=== PATIENT | male | born 1985 | race Two or more races ===

== ENCOUNTER 2018-06-29 20:30 | Emergency (ER) | payer SELFPAY ==
[~2018-06-29] VITALS: Ht 185.4 cm; Wt 83.9 kg
[2018-06-29] MEDS ORDERED: diphenhydrAMINE HCL 50 MG/ML VIAL ONE (20:58)
[2018-06-29] MEDS ORDERED: HALOPERIDOL LACTATE INJ 5 MG/ML VIAL ONE (20:58)
[2018-06-29] MEDS ORDERED: LORAZEPAM INJ 2 MG/ML VIAL ONE ×2 (20:59→21:18)
[2018-06-29] MEDS ORDERED: diphenhydrAMINE HCL 50 MG/ML VIAL IM ONE (21:00)
[2018-06-29] MEDS ORDERED: HALOPERIDOL LACTATE INJ 5 MG/ML VIAL IM ONE (21:00)
[2018-06-29] MEDS ORDERED: LORAZEPAM INJ 2 MG/ML VIAL IM ONE ×2 (21:00→22:00)
--- NOTE | 2018-06-29 21:00 | NUR ---
[employer] FROM STREET FOR BIZARRE/AGGRESSIVE BEHAIVOR. PER PT HAS BEEN ON [employer]ETH FOR LAST 2 WEEKS, HEARING VOICES, THINKS SOMEONE IS AFTER HIM. PT ANXIOUS & PARANOID, NO AGGRESSIVE BEHAVIOR @ THIS TIME. PT SEEN & EVAL'D BY DR. MONDRAGON & WILL CONT TO MONITOR.
--- NOTE | 2018-06-29 22:00 | NUR ---
PT REFUSED EKG OR ANY OTHER TREATMENT, DR. MONDRAGON AWARE.
--- NOTE | 2018-06-29 22:28 | NUR ---
PT WAS IN THE LOBBY. PT SIGNED ACI/DC PAPERWORK.
[2018-06-29 22:51] VITALS: BP 132/98
== END 2018-06-29 22:30 | disposition home or self-care (01) ==
LOC: ER 20:33
DX: F15.10 Other stimulant abuse, uncomplicated (principal); R00.0 Tachycardia, unspecified; R45.6 Violent behavior; Z59.0 Homelessness
CPT/HCPCS: 93005; 96372; 99283; A4606; J2060; J1200; J1630

== ENCOUNTER 2019-06-29 10:25 | Emergency (ER) | payer OTHER ==
[~2019-06-29] VITALS: Ht 190.5 cm; Wt 97.5 kg
[2019-06-29] MEDS ORDERED: LORAZEPAM INJ 2 MG/ML VIAL ONE (11:11)
[2019-06-29] MEDS ORDERED: LORAZEPAM INJ 2 MG/ML VIAL IM ONE (11:30)
[2019-06-29 11:36] VITALS: BP 132/77
--- NOTE | 2019-06-29 11:36 | NUR ---
MEDICALLY CLEARED BY ERMD. D/C TO PD IN STABLE CONDITION.
== END 2019-06-29 11:40 | disposition home or self-care (01) ==
LOC: ER 10:29
DX: F11.23 Opioid dependence with withdrawal (principal); R11.2 Nausea with vomiting, unspecified; Z59.0 Homelessness
CPT/HCPCS: 96372; 99283; J2060